=== PATIENT | female | born 1965 | race Caucasian/White ===

== ENCOUNTER 2019-10-12 21:14 | Emergency (ER) | payer SELFPAY ==
[~2019-10-12] VITALS: Ht 162.6 cm; Wt 111.6 kg
[2019-10-12 21:33] VITALS: BP 172/97; Ht 162.6 cm; Wt 111.6 kg
== END 2019-10-13 00:52 | disposition left against medical advice (07) ==
LOC: ED 21:14
DX: Z53.21 Procedure and treatment not carried out due to patient leaving prior to being seen by health care provider (principal)